=== PATIENT | male | born 1975 | race Caucasian/White ===

== ENCOUNTER 2017-10-24 11:53 | Day surgery (SDC) | payer OTHER ==
[~2017-10-24] VITALS: Ht 172.7 cm; Wt 119.3 kg
[~2017-10-24 11:53] MED LIST: PREV1CAP PO; PROZ20CA11 PO; PROZ40CA PO; RANI300T PO; XANA0.25 PO
[2017-10-24] MEDS ORDERED: NS 1,000 ML IV ONE (12:30)
[2017-10-24] MEDS ORDERED: PROPOFOL 200 MG/20 ML VIAL As Ordered ONE (14:26)
[2017-10-24] MEDS ORDERED: LIDOCAINE 2% INJ 100 MG/5 ML SDV (FOR ANES.) As Ordered ONE (14:26)
--- NOTE | 2017-10-24 14:31 | ROOR ---
Patient Name: Kenneth Abdalla Procedure Date: 10/24/2017 2:05 PM Date of : 1975 Age: 42 Room: [facility] Gender: Male Note Status: Finalized Procedure: Upper GI endoscopy Indications: Heartburn, Suspected esophageal reflux, Failure to respond to medical treatment (partial response, inadequate response to PPI) Providers: Fransico ROBLEDO MD Referring MD: Alfredo Najera MD Requesting Provider: Medicines: Monitored Anesthesia Care Complications: No immediate complications. Procedure: Pre-Anesthesia Assessment: - The heart rate, respiratory rate, oxygen saturations, blood pressure, adequacy of pulmonary ventilation, and response to care were monitored throughout the procedure. The Endoscope was introduced through the mouth, and advanced to the second part of duodenum. The upper GI endoscopy was accomplished without difficulty. The patient tolerated the procedure well. Findings: The examined esophagus was normal. This was biopsied with a cold forceps for evaluation of eosinophilic esophagitis. The examined esophagus was normal. The MASTERS capsule with delivery system was introduced through the mouth and advanced into the esophagus, such that the MASTERS pH capsule was positioned 36 cm from the incisors, which was 6 cm proximal to the GE junction. The MASTERS pH capsule was then deployed and attached to the esophageal mucosa. The delivery system was then withdrawn. Endoscopy was utilized for probe placement and diagnostic evaluation. The entire examined stomach was normal. The examined duodenum was normal. Impression: - Normal esophagus. Biopsied. - Normal stomach. - Normal examined duodenum. - The MASTERS pH capsule was deployed. Recommendation: - Instructions: Avoid all reflux medications for next 48 hrs. (i.e. Avoid all the following for the next 48 hours: Prilosec/Omeprazole, Nexium, Prevacid/Lansoprazole, Dexilant, Zegerid/Omeprazole, Aciphex/Rabeprazole, Protonix/Pantoprazole, Zantac/Ranitidine, Pepcid/Famotidine, Tagamet). You may take tums, rolaids or maalox for severe symptoms, but try to limit this as well. Do not try to avoid your usual triggers for your symptoms for next 48 hrs. (If you have known "triggers" for your symptoms such as caffeine, fatty foods, laying down after meals etc, it is actually encouraged that you do try to produce your symptoms as much as possible over next 48 hrs.) ---Telephone endoscopist for pathology results in 2 weeks. ---MONITORING of acid reflux is ongoing for the next 48 hrs. As soon as monitoring test is complete (IN 48 hrs), you may resume your usual reflux meds Fransico Robledo MD Fransico ROBLEDO MD 10/24/2017 2:30:40 PM This report has been signed electronically. Number of Addenda: 0 Note Initiated On: 10/24/2017 2:05 PM Estimated Blood Loss: Estimated blood loss: none.
[2017-10-24 14:50] VITALS: BP 160/93
== END 2017-10-24 15:05 | disposition home or self-care (01) ==
LOC: M OPP 11:53
PROVIDERS: ATTEND Internal Medicine Gastroenterology
DX: R12 Heartburn (principal); R07.89 Other chest pain; K44.9 Diaphragmatic hernia without obstruction or gangrene; K42.9 Umbilical hernia without obstruction or gangrene; K21.9 Gastro-esophageal reflux disease without esophagitis; F41.9 Anxiety disorder, unspecified; G47.30 Sleep apnea, unspecified; Z79.899 Other long term (current) drug therapy; Z80.0 Family history of malignant neoplasm of digestive organs

== ENCOUNTER → 2019-10-11 | Outpatient (REF) | LOC: M LAB LCGH 13:57 | PROVIDERS: ATTEND Surgery | DX: K42.9 Umbilical hernia without obstruction or gangrene (principal) ==

== ENCOUNTER → 2020-03-30 | Outpatient (CLI) | payer OTHER | LOC: M LAB 13:25 | PROVIDERS: ATTEND Otolaryngology | DX: K14.6 Glossodynia (principal); K14.0 Glossitis ==

== ENCOUNTER → 2020-04-13 | Outpatient (CLI) | payer OTHER ==
[2020-04-13 14:10] LABS: FOLATE 13.5 NG/ML
== END ==
LOC: M LAB 13:12
PROVIDERS: ATTEND Otolaryngology
DX: K14.0 Glossitis (principal)